=== PATIENT | male | born 1975 | race Caucasian/White ===

== ENCOUNTER 2018-09-05 09:53 | Emergency (ER) | payer MEDICAID ==
[~2018-09-05] VITALS: Ht 180.3 cm; Wt 60.0 kg
[2018-09-05 10:20] LABS: BASOPHILS % (AUTO) 0.3 % (0-1); EOSINOPHILS # (AUTO) 0.1 X10'3 (0-0.9); EOSINOPHILS % (AUTO) 1.5 % (0-6); HEMOGLOBIN 12.9 g/dl (14.0-17.9); LYMPHOCYTES # (AUTO) 0.5 X10'3 (1.1-4.8); LYMPHOCYTES % (AUTO) 5.8 % (21-51); MEAN CORPUSCULAR HEMOGLOBIN 36.2 PG (27.0-31.0); MEAN CORPUSCULAR VOLUME 106.6 FL (78-98); MEAN PLATELET VOLUME 7.9 FL (7.4-10.4); MONOCYTES # (AUTO) 0.3 X10'3 (0-0.9); MONOCYTES % (AUTO) 3.5 % (2-12); NEUTROPHILS # (AUTO) 8.2 X10'3 (1.8-7.7); NEUTROPHILS % (AUTO) 88.9 % (42-75); PLATELET COUNT 194 X10'3 (140-440); RED BLOOD COUNT 3.56 X10'6 (4.70-6.10); RED CELL DISTRIBUTION WIDTH 15.7 % (11.5-14.5); WHITE BLOOD COUNT 9.2 X10'3 (4.5-11.0)
[2018-09-05 10:36] LABS: ALANINE AMINOTRANSFERASE 45 U/L (12-78); ALBUMIN 4.8 G/DL (3.4-5.0); ALBUMIN/GLOBULIN RATIO 1.8 (1.1-1.5); ALKALINE PHOSPHATASE 89 IU/L (46-116); ANION GAP 14 (8-16); ASPARTATE AMINO TRANSFERASE 95 U/L (10-37); BLOOD UREA NITROGEN 6 MG/DL (7-18); BUN/CREATININE RATIO 7.1 (5.4-32.0); CALCIUM 9.1 MG/DL (8.5-10.1); CHLORIDE 90 MMOL/L (99-107); CREATININE 0.85 MG/DL (0.60-1.10); GLUCOSE 107 MG/DL (70-104); POTASSIUM 3.4 MMOL/L (3.5-5.1); SODIUM 130 MMOL/L (135-145); TOTAL CARBON DIOXIDE 25.9 MMOL/L (24-32); TOTAL PROTEIN 7.5 G/DL (6.4-8.2); eGFR > 90 ML/MIN
[2018-09-05 10:42] LABS: INR 1.1 INR; PARTIAL THROMBOPLASTIN TIME 28 SECONDS (22-32); PROTHROMBIN TIME 10.7 SECONDS (9.0-12.0)
[2018-09-05] MEDS ORDERED: normal saline 1000ml 1,000 ML IV ONE (11:10)
[2018-09-05 12:18] LABS: LIPASE 72 U/L (73-393)
[2018-09-05 12:37] VITALS: BP 170/103
== END 2018-09-05 12:39 | disposition home or self-care (01) ==
LOC: ER 09:53
DX: I10 Essential (primary) hypertension (principal); R42 Dizziness and giddiness; Z88.5 Allergy status to narcotic agent
CPT/HCPCS: 36415; 71045; 80053; 83690; 84484; 85025; 85610; 85730; 93005; 99284; J7030

== ENCOUNTER 2021-06-07 09:03 | Emergency (ER) | payer MEDICAID ==
[2021-06-07] VITALS (8 sets, daily range): BP systolic 101–136; BP diastolic 64–79
[~2021-06-07] VITALS: Ht 177.8 cm; Wt 63.6 kg
[2021-06-07] MEDS ORDERED: LIDOcaine 1% W/epiNEPHrine 1:200,000 10ml vial IJ ONE (09:05)
[2021-06-07] MEDS ORDERED: HYDROcodone/acetaminophen 10/325mg tab PO ONE (09:40)
[2021-06-07] MEDS ORDERED: ondansetron 4mg rapidly disintigrating tab PO ONE (09:40)
[2021-06-07] MEDS ORDERED: ceFAZolin 1gm IM kit IM ONE (10:20)
--- NOTE | 2021-06-07 11:05 | NUR ---
Pt is awake and alert. Stated that a 2x6 board landed on his L hand. +abrasions, edema, and deformity to the 2nd and 3rd fingers of L hand.
[2021-06-07 12:11] LABS: BASOPHILS # (AUTO) 0.1 X10'3 (0-0.2); BASOPHILS % (AUTO) 1.1 % (0-1); EOSINOPHILS # (AUTO) 0.2 X10'3 (0-0.9); EOSINOPHILS % (AUTO) 2.5 % (0-6); HEMATOCRIT 35.4 % (42.0-52.0); HEMOGLOBIN 12.2 g/dl (14.0-17.9); LYMPHOCYTES # (AUTO) 1.5 X10'3 (1.1-4.8); LYMPHOCYTES % (AUTO) 17.7 % (21-51); MEAN CORPUSCULAR HEMOGLOBIN 31.4 PG (27.0-31.0); MEAN CORPUSCULAR HGB CONC 34.4 g/dL (33.0-36.5); MEAN CORPUSCULAR VOLUME 91.3 FL (78-98); MONOCYTES # (AUTO) 0.5 X10'3 (0-0.9); MONOCYTES % (AUTO) 5.4 % (2-12); NEUTROPHILS # (AUTO) 6.2 X10'3 (1.8-7.7); NEUTROPHILS % (AUTO) 73.3 % (42-75); PLATELET COUNT 126 X10'3 (140-440); RED BLOOD COUNT 3.87 X10'6 (4.70-6.10); RED CELL DISTRIBUTION WIDTH 14.5 % (11.5-14.5); WHITE BLOOD COUNT 8.4 X10'3 (4.5-11.0)
[2021-06-07 12:20] LABS: PARTIAL THROMBOPLASTIN TIME 32 SECONDS (22-32)
[2021-06-07 12:33] LABS: ALANINE AMINOTRANSFERASE 75 U/L (12-78); ALBUMIN/GLOBULIN RATIO 1.3 (1.1-1.5); ALKALINE PHOSPHATASE 133 IU/L (46-116); ANION GAP 10 (8-16); ASPARTATE AMINO TRANSFERASE 128 U/L (10-37); BILIRUBIN,TOTAL 0.4 MG/DL (0.1-1.0); BLOOD UREA NITROGEN 17 MG/DL (7-18); CALCIUM 8.9 MG/DL (8.5-10.1); CHLORIDE 95 MMOL/L (99-107); CREATININE 1.13 MG/DL (0.60-1.10); GLUCOSE 106 MG/DL (70-104); POTASSIUM 4.4 MMOL/L (3.5-5.1); SODIUM 130 MMOL/L (135-145); TOTAL CARBON DIOXIDE 24.8 MMOL/L (24-32); TOTAL PROTEIN 7.2 G/DL (6.4-8.2); eGFR 70 ML/MIN
[2021-06-07] MEDS ORDERED: labetalol 20mg/4ml (5mg/ml) syringe IV PRN (13:00)
[2021-06-07] MEDS ORDERED: morphine 4 MG/ML inj SYRINge IV PRN (13:00)
[2021-06-07] MEDS ORDERED: hydrALAZINE 20mg/ml inj. IV PRN (13:00)
[2021-06-07] MEDS ORDERED: morphine 2 MG/ML inj. syringe IV PRN (13:00)
[2021-06-07] MEDS ORDERED: fentaNYL/PF 50MCG/1 ML 2ML syringe IV PRN ×2 (13:00)
[2021-06-07] MEDS ORDERED: ringers solution, lacted 1,000 ML IV SCH (13:00)
[2021-06-07] MEDS ORDERED: ondansetron/PF 4mg/2ml inj IV PRN ×2 (13:00→16:45)
[2021-06-07] MEDS ORDERED: ZINC50TA60 PO (13:10)
[2021-06-07] MEDS ORDERED: ATOR20TA66 PO (13:10)
[2021-06-07] MEDS ORDERED: METO-411 PO (13:10)
[2021-06-07] MEDS ORDERED: ACAM333T8 PO (13:10)
[2021-06-07] MEDS ORDERED: LISI40TA13 PO (13:10)
[2021-06-07] MEDS ORDERED: NAPR-996 PO (13:10)
[2021-06-07] MEDS ORDERED: ASPI-1475 PO (13:10)
[2021-06-07] MEDS ORDERED: APIX5TAB3 PO (13:10)
[2021-06-07] MEDS ORDERED: BUPR1FIL3 SL (13:10)
[2021-06-07] MEDS ORDERED: LEVE500T PO (13:10)
[2021-06-07] MEDS ORDERED: CHOL20003 PO (13:10)
[2021-06-07] MEDS ORDERED: CYAN-51 PO (13:10)
[2021-06-07] MEDS ORDERED: HYDR12.55 PO (13:10)
[2021-06-07] MEDS ORDERED: FOLI0.4T14 PO (13:10)
[2021-06-07] MEDS ORDERED: MIDAZolam 1 MG/ML 5ML VIAL ONE ×2 (15:05→15:57)
[2021-06-07] MEDS ORDERED: fentaNYL/PF 50MCG/1 ML 2ML syringe ONE (15:05)
[2021-06-07] MEDS ORDERED: ROPIVAcaine 0.5% (5mg/ml) 30ml vial ONE (15:05)
[2021-06-07] MEDS ORDERED: propofol 10mg/ml 20ml vial IV ONE (15:10)
[2021-06-07] MEDS ORDERED: LIDOcaine 1%/PF 5ML 10 MG/ML VIAL ONE (15:10)
[2021-06-07] MEDS ORDERED: sevoflurane 250ml liquid IH ONE (15:10)
[2021-06-07] MEDS ORDERED: ceFAZolin 1000mg inj ONE ×2 (15:26)
[2021-06-07] MEDS ORDERED: bacitracin 15gm ointment TP ONE (16:26)
[2021-06-07] MEDS ORDERED: normal saline 1000ml 1,000 ML IV SCH (16:45)
[2021-06-07] MEDS ORDERED: mag hydrox/Alum hydrox/simeth 30ml oral suspension PO PRN (16:45)
[2021-06-07] MEDS ORDERED: acetaminophen 325mg tablet PO PRN (16:45)
[2021-06-07] MEDS ORDERED: thiamine 100mg/ml 2ml inj. IV ONE (16:45)
[2021-06-07] MEDS ORDERED: magnesium 4gm in 100ml NS 100 ML IV PRN (16:45)
[2021-06-07] MEDS ORDERED: acetaminophen 650mg rectal suppository RC PRN (16:45)
[2021-06-07] MEDS ORDERED: magnesium Cl slow-release 64mg tablet PO PRN (16:45)
[2021-06-07] MEDS ORDERED: LORazepam 2 mg/ml vial IV PRN (16:45)
[2021-06-07] MEDS ORDERED: magnesium hydroxide 30ml (MOM) UD suspension PO PRN (16:45)
[2021-06-07] MEDS ORDERED: dextrose 50%-water 50ml dispensing syringe IV PRN (16:45)
[2021-06-07] MEDS ORDERED: bisacodyl 10mg suppository rectal RC PRN (16:45)
[2021-06-07] MEDS ORDERED: diphenhydrAMINE 25mg capsule PO PRN (16:45)
[2021-06-07] MEDS ORDERED: potassium Cl 40MEQ/1/2NS 520ml 520 ML IV PRN ×2 (16:45)
[2021-06-07] MEDS ORDERED: LORazepam 1 MG tablet PO PRN (16:45)
[2021-06-07] MEDS ORDERED: magnesium 2GM in 50ml NS 50 ML IV PRN (16:45)
[2021-06-07] MEDS ORDERED: potassium Cl 20 mEq SR tablet PO PRN ×2 (16:45)
--- NOTE | 2021-06-07 16:47 | NUR ---
Received from OR via [facility] , accompanied by Anesthesiologist ELYSIA and report given by Anesthesiolgist. PATIENT WITH 22G PIV IN RIGHT UE RUNNING LR AT 100. LEFT HAND/ WRIST DRESSING CDI WIT + CAP REFILL TO PINKY. 10L MASK ON WITH 100% SATURATIONS. VSS AT THIS TIME. Addendum: 06/07/21 at 1657 by Jacob Ortiz RN, RN Amended: Links added.
[2021-06-07 17:16] LABS: HEMOGLOBIN A1C 5.8 % (4.5-6.2)
--- NOTE | 2021-06-07 17:57 | NUR ---
ALL DC CRITERIA FOR HOME HAS BEEN MET. IV OUT WITHOUT COMPLICATIONS. DENIES PAIN, PATIENT WITH SPLINT ON THAT IS CDI. ALL DC INSTRUCTIONS COVERED. PATIENT SENT HOME WITH FATHER AND ARE GOING TO [facility] WHERE HIS PRESCRIPTION WAS CALLED IN . VSS Addendum: 06/07/21 at 1815 by Jacob Ortiz RN, RN Amended: Links added.
[2021-06-07] MEDS ORDERED: K and/or MAG REPLACEMENT MC SCH (20:00)
[2021-06-07] MEDS ORDERED: docusate sod 100mg capsule PO SCH (20:00)
[2021-06-07] MEDS ORDERED: levetiracetam 250mg tablet PO SCH (20:00)
[2021-06-07] MEDS ORDERED: acamprosate DR 333mg Tablet PO SCH (21:00)
[2021-06-08] MEDS ORDERED: cholecalciferol (vitamin D3) 1,000 unit (25mcg) tablet PO SCH (08:00)
[2021-06-08] MEDS ORDERED: metoprolol succinate 25mg (24-HOUR) SR. Tablet PO SCH (08:00)
[2021-06-08] MEDS ORDERED: cyanocobalamin 500mcg tablet PO SCH (08:00)
[2021-06-08] MEDS ORDERED: zinc sulfate 220mg capsule PO SCH (08:00)
[2021-06-08] MEDS ORDERED: multivitamins, therapeutics tablet PO SCH (08:00)
[2021-06-08] MEDS ORDERED: atorvastatin 20mg tablet PO SCH (08:00)
[2021-06-08] MEDS ORDERED: folic acid 0.4mg tablet PO SCH (08:00)
[2021-06-08] MEDS ORDERED: HYDROchlorothiazide 12.5mg capsule PO SCH (08:00)
[2021-06-08] MEDS ORDERED: lisinopril 20mg tablet PO SCH (08:00)
[2021-06-08] MEDS ORDERED: buprenorphine/naloxone 8MG-2MG SUBlingual film SL SCH (08:00)
[2021-06-08] MEDS ORDERED: thiamine 100mg tablet PO SCH (08:00)
== END 2021-06-07 17:57 | disposition home or self-care (01) ==
LOC: ER 09:03
DX: S62.613A Displaced fracture of proximal phalanx of left middle finger, initial encounter for closed fracture (principal); S62.611A Displaced fracture of proximal phalanx of left index finger, initial encounter for closed fracture; Z20.822 Contact with and (suspected) exposure to COVID-19; M79.645 Pain in left finger(s); I10 Essential (primary) hypertension; Z98.890 Other specified postprocedural states; Z72.89 Other problems related to lifestyle; Z88.5 Allergy status to narcotic agent; Z79.82 Long term (current) use of aspirin; Z79.899 Other long term (current) drug therapy; X58.XXXA Exposure to other specified factors, initial encounter; Y93.89 Activity, other specified; Y92.89 Other specified places as the place of occurrence of the external cause; Y99.8 Other external cause status
CPT/HCPCS: 26746; 36415; 73130; 73140; 80053; 83036; 85025; 85610; 85730; 87635; 96372; 99285; A6222; C1713; C9803; J0690; J2250; J2704; J3010; Z7506; Z7508; Z7512; A4618; A6449; A7000; J2795